=== PATIENT | male | born 1985 | race Caucasian/White ===

== ENCOUNTER 2016-11-03 21:55 | Emergency (ER) | payer MEDICAID ==
[~2016-11-03] VITALS: Ht 180.3 cm; Wt 84.8 kg
[2016-11-03 22:01] VITALS: BP 142/95
== END 2016-11-03 22:35 | disposition home or self-care (01) ==
LOC: ED 22:29
DX: S99.921A Unspecified injury of right foot, initial encounter (principal); X58.XXXA Exposure to other specified factors, initial encounter; Y93.89 Activity, other specified; Y92.009 Unspecified place in unspecified non-institutional (private) residence as the place of occurrence of the external cause; Y99.8 Other external cause status
CPT/HCPCS: 99281

== ENCOUNTER 2016-11-20 | Emergency (ER) | payer MEDICAID ==
[~2016-11-20] VITALS: Ht 182.9 cm; Wt 83.7 kg
[2016-11-20 00:01] VITALS: BP 143/90
== END 2016-11-20 01:04 | disposition home or self-care (01) ==
LOC: ED 00:38
DX: M79.671 Pain in right foot (principal); F90.9 Attention-deficit hyperactivity disorder, unspecified type
CPT/HCPCS: 99284

== ENCOUNTER 2017-02-02 15:30 | Emergency (ER) | payer MEDICAID ==
[~2017-02-02] VITALS: Ht 188 cm; Wt 83.2 kg
[2017-02-02 15:33] VITALS: BP 129/77
== END 2017-02-02 17:15 | disposition home or self-care (01) ==
LOC: ED 16:28
DX: K40.90 Unilateral inguinal hernia, without obstruction or gangrene, not specified as recurrent (principal)
CPT/HCPCS: 99281

== ENCOUNTER 2017-02-15 06:22 | Emergency (ER) | payer MEDICAID ==
[~2017-02-15] VITALS: Ht 188 cm; Wt 88.9 kg
[2017-02-15 06:23] VITALS: BP 127/66
[2017-02-15 07:37] LABS: RAPID INFLUENZA A Negative (Negative); RAPID INFLUENZA B Negative (Negative)
[2017-02-15] MEDS ORDERED: KETOROLAC 30 MG/1 ML IM ONE (08:30)
== END 2017-02-15 08:44 ==
LOC: ED 06:46
DX: J11.1 Influenza due to unidentified influenza virus with other respiratory manifestations (principal); F90.9 Attention-deficit hyperactivity disorder, unspecified type; J31.0 Chronic rhinitis
CPT/HCPCS: 71010; 87400; 96372; 99285; J1885